=== PATIENT | male | born 1990 | race Caucasian/White ===

== ENCOUNTER 2020-04-12 18:53 | Emergency (ER) | payer MEDICAID ==
[~2020-04-12] VITALS: Ht 182.9 cm; Wt 68.2 kg
[2020-04-12] MEDS ORDERED: IBUP-1506 PO (19:11)
[2020-04-12] MEDS ORDERED: KETOROLAC TROMETHAMINE 60 MG/2 ML VIAL IM ONE (20:30)
[2020-04-12 21:00] VITALS: BP 129/68
[2020-04-13] MEDS ORDERED: AMOX1TAB16 PO (20:47)
== END 2020-04-12 21:07 | disposition home or self-care (01) ==
LOC: EMS 18:53
DX: J01.90 Acute sinusitis, unspecified (principal); J45.909 Unspecified asthma, uncomplicated
CPT/HCPCS: 96372; 99283; J1885

== ENCOUNTER 2020-04-13 20:22 | Emergency (ER) | payer MEDICAID ==
[~2020-04-13] VITALS: Ht 180.3 cm; Wt 65.9 kg
[~2020-04-13 20:22] MED LIST: IBUP-1506 PO
[2020-04-13] MEDS ORDERED: AMOX1TAB16 PO (20:47)
[2020-04-13] MEDS ORDERED: HYDROCODONE/ACETAMINOPHEN 5-325 MG TABLET PO ONE (22:30)
[2020-04-14 00:10] VITALS: BP 125/74
== END 2020-04-14 00:17 | disposition home or self-care (01) ==
LOC: EMS 20:23
DX: J32.1 Chronic frontal sinusitis (principal); J45.909 Unspecified asthma, uncomplicated
CPT/HCPCS: 70450

== ENCOUNTER 2020-05-27 21:12 | Emergency (ER) | payer MEDICAID ==
[~2020-05-27] VITALS: Ht 180.3 cm; Wt 65.9 kg
[~2020-05-27 21:12] MED LIST changes: +AMOX1TAB16 PO
[2020-05-27] MEDS ORDERED: IBUPROFEN 800 MG TABLET PO ONE (23:30)
[2020-05-27 23:36] VITALS: BP 126/71
== END 2020-05-27 23:50 | disposition home or self-care (01) ==
LOC: EMS 21:12
DX: S93.402A Sprain of unspecified ligament of left ankle, initial encounter (principal); J45.909 Unspecified asthma, uncomplicated; X50.1XXA Overexertion from prolonged static or awkward postures, initial encounter; Y93.66 Activity, soccer; Y92.096 Garden or yard of other non-institutional residence as the place of occurrence of the external cause; Y99.8 Other external cause status
CPT/HCPCS: 29515

== ENCOUNTER 2023-09-29 11:01 | Emergency (ER) | payer MEDICAID ==
[~2023-09-29] VITALS: Ht 182.9 cm; Wt 68.2 kg
[2023-09-29] MEDS ORDERED: IBUP-1506 PO (11:13)
[2023-09-29 11:54] LABS: APPEARANCE,URINE CLEAR (CLEAR); BILIRUBIN,URINE NEGATIVE (NEGATIVE); COLOR,URINE LIGHT YELLOW (YELLOW); GLUCOSE, URINE (UA) NEGATIVE (NEGATIVE); KETONES,URINE NEGATIVE (NEGATIVE); LEUKOCYTE ESTERASE ,URINE NEGATIVE (NEGATIVE); NITRATE,URINE NEGATIVE (NEGATIVE); OCCULT BLOOD,URINE NEGATIVE (NEGATIVE); PROTEIN,URINE NEGATIVE (NEGATIVE); SPECIFIC GRAVITIY, URINE 1.016 (1.003-1.030); UROBILINOGEN,URINE <=1.0 mg/dL (<=1.0)
[2023-09-29 13:26] LABS: BASOPHILS % (AUTO) 0.5 % (0.0-2.0); EOSINOPHILS % (AUTO) 3.6 % (1.0-6.0); HEMATOCRIT 44.6 % (41-53); HEMOGLOBIN 14.6 g/dL (13.5-17.5); LYMPHOCYTES # (AUTO) 1.4 K/uL (1.0-4.8); LYMPHOCYTES % (AUTO) 22.7 % (22.0-44.0); MEAN CORPUSCULAR HEMOGLOBIN 27.7 pg (26.0-34.0); MEAN CORPUSCULAR HGB CONC 32.7 G/dL (31.0-37.0); MEAN CORPUSCULAR VOLUME 85 fL (80-100); MONOCYTES # (AUTO) 0.5 K/uL (0.1-1.0); MONOCYTES % (AUTO) 7.4 % (2.0-9.0); NEUTROPHILS # (AUTO) 4.1 K/uL (1.8-7.7); NEUTROPHILS % (AUTO) 65.8 % (40.0-70.0); PLATELET COUNT (AUTO) 198 K/uL (150-450); RED BLOOD CELL COUNT(AUTO) 5.27 MIL/uL (4.50-5.90); RED CELL DISTRIBUTION WIDTH 13.8 % (11.5-14.5); WHITE BLOOD COUNT (AUTO) 6.2 K/uL (4.5-11.0)
[2023-09-29 13:35] LABS: ANION GAP 7 mmol/L (8-16); CALCIUM, TOTAL 9.5 mg/dL (8.8-10.5); CARBON DIOXIDE 30 mmol/L (22-29); CHLORIDE 102 mmol/L (98-107); CREATININE 0.83 mg/dL (0.60-1.30); GLOMERULAR FILTR. RATE CALC > 60 mL/min (>60); GLUCOSE,RANDOM 85 mg/dL (70-110); POTASSIUM 4.1 mmol/L (3.5-5.1); SODIUM SERUM 139 mmol/L (136-145); UREA NITROGEN, BLOOD 15 mg/dL (7-18)
[2023-09-29 13:41] LABS: ALANINE AMINOTRANSFERASE 46 U/L (12-78); ALBUMIN 4.1 g/dL (3.4-5.0); ALKALINE PHOSPHATASE 89 U/L (46-116); ASPARTATE AMINOTRANSFERASE 24 U/L (15-37); BILIRUBIN,TOTAL 0.7 mg/dL (0.1-1.0); LIPASE 33 U/L (16-77); TOTAL PROTEIN, SERUM 7.6 g/dL (6.4-8.2)
[2023-09-29] MEDS: ACETAMINOPHEN/CODEINE 300-30 MG TABLET PO ONE (13:47)
[2023-09-29] MEDS: IBUPROFEN 600 MG TABLET PO ONE (13:47)
[2023-09-29] MEDS ORDERED: POLY17PO62 PO (16:12)
[2023-09-29 16:34] VITALS: BP 126/85; PULSE 62; RESP 18; TEMP 98.7
== END 2023-09-29 16:35 | disposition home or self-care (01) ==
LOC: EMS 11:41
DX: K59.00 Constipation, unspecified (principal); J45.909 Unspecified asthma, uncomplicated
CPT/HCPCS: 74176; 80053; 81003; 83690; 85025; 99284